=== PATIENT | male | born 1965 | race Two or more races ===

== ENCOUNTER 2021-12-04 13:46 | Inpatient (IN) | payer OTHER ==
[~2021-12-04] VITALS: Ht 160 cm; Wt 73.0 kg
[2021-12-04] MEDS ORDERED: ONDANSETRON HCL 4 MG/2 ML VIAL IV ONE (14:00)
[2021-12-04 14:35] LABS: Basophils # (auto) 0 10 ^3/uL (0-0.2); Basophils % (auto) 0.3 % (0.0-2.0); Eosinophils # (auto) 0.1 10 ^3/uL (0-0.8); Hematocrit 33.8 % (41.0-53.0); Lymphocytes # (auto) 1.5 10 ^3/uL (0.4-5.4); Lymphocytes % (auto) 29.8 % (10.0-50.0); Mean Corpuscular Hemoglobin 31.2 pg (28.0-32.0); Mean Corpuscular Hgb Conc. 32.5 g/dL (32.0-36.0); Mean Corpuscular Volume 96.2 fL (80.0-100.0); Monocytes # (auto) 0.4 10 ^3/uL (0-1.3); Monocytes % (auto) 7.8 % (0.0-12.0); Neutrophils # (auto) 3.1 10 ^3/uL (1.6-8.6); Neutrophils % (auto) 61.1 % (37.0-80.0); Red Blood Cells 3.52 10^6/uL (4.5-5.90); Red Cell Distribution Width 14.5 % (11.8-14.3); White Blood Cell 5.1 10^3/uL (4.4-10.8)
[2021-12-04 14:56] LABS: Alanine Aminotransferase 40 U/L (16-61); Albumin 2.9 g/dL (3.4-5.0); Anion Gap 9 (5-15); Aspartate Aminotransferase 25 U/L (15-37); BUN/Creatinine Ratio 40.3; Blood Alcohol < 3.0 mg/dL (0-5); Blood Urea Nitrogen 27 mg/dL (7-18); Calcium 7.9 mg/dL (8.5-10.1); Carbon Dioxide 22 mmol/L (21-32); Chloride 103 mmol/L (98-107); GFR African American 158 mL/min; GFR Non-African American 130 mL/min; Glucose 383 mg/dL (74-106); Potassium 4.2 mmol/L (3.5-5.1); Sodium 134 mmol/L (136-145)
[2021-12-04 14:59] LABS: Alkaline Phosphatase 109 U/L (45-117); Bilirubin, Total 0.8 mg/dL (0.2-1.0); Total Protein 6.7 g/dL (6.4-8.2)
[2021-12-04 15:00] LABS: INR 1.12 (0.9-1.15); Partial Thromboplastin Time 27.6 sec (24.6-33.4)
[2021-12-04] MEDS ORDERED: PANTOPRAZOLE 40 MG/10 ML VIAL INJ IV ONE (15:30)
[2021-12-04 18:21] LABS: Amylase 90 U/L (25-115); Lipase 342 U/L (73-393)
[2021-12-04] MEDS ORDERED: LACTULOSE 20Gm/30ML SOLN PO ONE (19:30)
[2021-12-04] MEDS ORDERED: ONDANSETRON HCL 4 MG/2 ML VIAL IV PRN (19:30)
[2021-12-04] MEDS ORDERED: cefTRIAXone 1GM/50ML D5W 50 ML IV ONE (19:45)
[2021-12-04 19:56] LABS: Cholesterol 113 mg/dL (< 200)
[2021-12-04 19:59] LABS: HDL Cholesterol 39 mg/dL (40-59); LDL Cholesterol 65 mg/dL (< 100); Triglycerides 114 mg/dL (< 150)
[2021-12-04] MEDS ORDERED: DEXTROSE (50%) 50ML SYRG IV PRN (20:00)
[2021-12-04] MEDS: PANTOPRAZOLE 40 MG/10 ML VIAL INJ IV SCH (20:04)
[2021-12-04] MEDS: SODIUM CHLORIDE 0.9% 1,000 ML IV SCH (20:48)
[2021-12-04] MEDS: metroNIDAZOLE 500MG/100ML 100 ML IV SCH (21:08)
[2021-12-05] VITALS (7 sets, daily range): BP systolic 104–145; BP diastolic 52–70
[2021-12-05] MEDS: InsuLIN REG 1unit/0.01ml Soln (100units/ml) SC SCH ×4 (00:38→17:53)
[2021-12-05] MEDS: ACCU-CHEK COMFORT CURVE STRIP VI SCH ×4 (00:38→17:54)
[2021-12-05] MEDS ORDERED: GLIP10TA9 PO (03:27)
[2021-12-05] MEDS: metroNIDAZOLE 500MG/100ML 100 ML IV SCH ×3 (04:59→20:33)
[2021-12-05 08:53] LABS: Basophils # (auto) 0 10 ^3/uL (0-0.2); Basophils % (auto) 0.4 % (0.0-2.0); Eosinophils # (auto) 0.1 10 ^3/uL (0-0.8); Eosinophils % (auto) 2.6 % (0.0-7.0); Hematocrit 30.3 % (41.0-53.0); Hemoglobin 10.3 g/dL (13.5-17.5); Lymphocytes # (auto) 1.2 10 ^3/uL (0.4-5.4); Mean Corpuscular Hemoglobin 32.1 pg (28.0-32.0); Mean Corpuscular Hgb Conc. 33.8 g/dL (32.0-36.0); Monocytes # (auto) 0.3 10 ^3/uL (0-1.3); Monocytes % (auto) 8.5 % (0.0-12.0); Neutrophils # (auto) 1.9 10 ^3/uL (1.6-8.6); Neutrophils % (auto) 54.5 % (37.0-80.0); Nucleated Red Blood Cells % 0.2 %; Red Blood Cells 3.19 10^6/uL (4.5-5.90); Red Cell Distribution Width 14.6 % (11.8-14.3); White Blood Cell 3.5 10^3/uL (4.4-10.8)
[2021-12-05 09:20] LABS: Albumin 2.4 g/dL (3.4-5.0); BUN/Creatinine Ratio 37.7; Bilirubin, Total 0.5 mg/dL (0.2-1.0); Calcium 7.5 mg/dL (8.5-10.1); Total Protein 5.8 g/dL (6.4-8.2)
[2021-12-05] MEDS: PANTOPRAZOLE 40 MG/10 ML VIAL INJ IV SCH ×2 (09:21→21:28)
[2021-12-05] MEDS: SODIUM CHLORIDE 0.9% 1,000 ML IV SCH ×2 (09:24→21:28)
[2021-12-05] MEDS: SUCRALFATE 1 GM TAB PO SCH ×2 (17:52→21:27)
[2021-12-05] MEDS: cefTRIAXone 1GM/50ML D5W 50 ML IV SCH (21:28)
[2021-12-06] MEDS: ACCU-CHEK COMFORT CURVE STRIP VI SCH ×5 (00:48→21:21)
[2021-12-06] MEDS: metroNIDAZOLE 500MG/100ML 100 ML IV SCH ×3 (04:37→20:34)
[2021-12-06 05:00] VITALS: BP 109/62
[2021-12-06 05:22] LABS: Basophils # (auto) 0 10 ^3/uL (0-0.2); Basophils % (auto) 0.6 % (0.0-2.0); Eosinophils # (auto) 0.1 10 ^3/uL (0-0.8); Eosinophils % (auto) 3.5 % (0.0-7.0); Hematocrit 28.5 % (41.0-53.0); Hemoglobin 9.7 g/dL (13.5-17.5); Lymphocytes # (auto) 1.3 10 ^3/uL (0.4-5.4); Lymphocytes % (auto) 43.9 % (10.0-50.0); Mean Corpuscular Hemoglobin 32.3 pg (28.0-32.0); Mean Corpuscular Hgb Conc. 34.1 g/dL (32.0-36.0); Mean Corpuscular Volume 94.8 fL (80.0-100.0); Monocytes # (auto) 0.3 10 ^3/uL (0-1.3); Monocytes % (auto) 9.3 % (0.0-12.0); Neutrophils # (auto) 1.2 10 ^3/uL (1.6-8.6); Neutrophils % (auto) 42.7 % (37.0-80.0); Nucleated Red Blood Cells % 0.4 %; Red Cell Distribution Width 14.6 % (11.8-14.3); White Blood Cell 2.9 10^3/uL (4.4-10.8)
[2021-12-06 05:47] LABS: Potassium 3.3 mmol/L (3.5-5.1)
[2021-12-06] MEDS: InsuLIN REG 1unit/0.01ml Soln (100units/ml) SC SCH ×5 (05:49→21:22)
[2021-12-06] MEDS: SUCRALFATE 1 GM TAB PO SCH ×4 (05:50→21:21)
[2021-12-06 05:53] LABS: BUN/Creatinine Ratio 35.6; Calcium 7.4 mg/dL (8.5-10.1)
[2021-12-06 08:00] VITALS: BP 117/72
[2021-12-06] MEDS: PANTOPRAZOLE 40 MG/10 ML VIAL INJ IV SCH ×2 (11:33→21:21)
[2021-12-06] MEDS: SODIUM CHLORIDE 0.9% 1,000 ML IV SCH (11:33)
[2021-12-06] MEDS ORDERED: MIDAZOLAM HCL 5 MG/ML-1ML VIAL ONE (12:31)
[2021-12-06] MEDS ORDERED: SODIUM CHLORIDE LOCK 10 ML ONE (12:32)
[2021-12-06] MEDS ORDERED: fentaNYL CITRATE 100 MCG/2 ML VL ONE (12:32)
[2021-12-06 12:37] VITALS: BP 123/66
[2021-12-06] MEDS ORDERED: LIDOCAINE VISCOUS 2% 15ML UD ONE (12:39)
[2021-12-06] MEDS: diphenhdrAMINE HCL 50 MG/1 ML VL ONE ×2 (16:43→16:45)
[2021-12-06 17:01] VITALS: BP 128/68
[2021-12-06 22:00] VITALS: BP 137/76
[2021-12-06] MEDS: cefTRIAXone 1GM/50ML D5W 50 ML IV SCH (22:28)
[2021-12-07] MEDS: SODIUM CHLORIDE 0.9% 1,000 ML IV SCH ×2 (01:05→14:25)
[2021-12-07] MEDS: metroNIDAZOLE 500MG/100ML 100 ML IV SCH ×2 (04:30→12:30)
[2021-12-07 05:00] VITALS: BP 133/76
[2021-12-07 05:09] LABS: Basophils # (auto) 0 10 ^3/uL (0-0.2); Basophils % (auto) 0.7 % (0.0-2.0); Eosinophils # (auto) 0.1 10 ^3/uL (0-0.8); Hematocrit 29.6 % (41.0-53.0); Hemoglobin 10.1 g/dL (13.5-17.5); Lymphocytes # (auto) 1.1 10 ^3/uL (0.4-5.4); Lymphocytes % (auto) 42.8 % (10.0-50.0); Mean Corpuscular Hemoglobin 32.4 pg (28.0-32.0); Mean Corpuscular Hgb Conc. 34.3 g/dL (32.0-36.0); Mean Corpuscular Volume 94.7 fL (80.0-100.0); Monocytes # (auto) 0.3 10 ^3/uL (0-1.3); Monocytes % (auto) 10.3 % (0.0-12.0); Neutrophils # (auto) 1.2 10 ^3/uL (1.6-8.6); Neutrophils % (auto) 43.2 % (37.0-80.0); Nucleated Red Blood Cells % 0.2 %; Red Blood Cells 3.13 10^6/uL (4.5-5.90); Red Cell Distribution Width 14.8 % (11.8-14.3); White Blood Cell 2.7 10^3/uL (4.4-10.8)
[2021-12-07] MEDS: InsuLIN REG 1unit/0.01ml Soln (100units/ml) SC SCH ×2 (05:23→12:00)
[2021-12-07] MEDS: ACCU-CHEK COMFORT CURVE STRIP VI SCH ×2 (05:23→12:00)
[2021-12-07] MEDS: SUCRALFATE 1 GM TAB PO SCH ×2 (05:23→15:15)
[2021-12-07 08:00] VITALS: BP 117/72
[2021-12-07 09:11] VITALS: BP 134/73
[2021-12-07] MEDS: PANTOPRAZOLE 40 MG/10 ML VIAL INJ IV SCH (10:00)
[2021-12-07] MEDS ORDERED: PROP60CA34 PO (10:50)
[2021-12-07] MEDS ORDERED: SUCR1TAB PO (10:50)
[2021-12-07] MEDS ORDERED: FERR-7 PO (10:50)
[2021-12-07] MEDS ORDERED: PANT40T PO (10:50)
[2021-12-07] MEDS ORDERED: PANTOPRAZOLE 40 MG TAB PO ONE (11:00)
[2021-12-07 13:01] VITALS: BP 82/139
[2021-12-07 14:15] LABS: Hepatitis A Ab IgM Negative
[2021-12-07 14:18] LABS: Hepatitis B Core IgM Negative
[2021-12-07 14:19] LABS: Hepatitis C Antibody Negative (Negative)
[2021-12-07 14:29] VITALS: BP 134/73
== END 2021-12-07 15:17 | disposition home or self-care (01) | DRG 280 ==
LOC: ER 13:46 → OVERFLOW 19:22 → WEST WING 12-05 01:35
PROVIDERS: ADMIT Registered Nurse; ATTEND Family Medicine
PROC: 0DB68ZX Excision of Stomach, Via Natural or Artificial Opening Endoscopic, Diagnostic (ICD-10-PCS; 2021-12-06)
PROC: 0DB98ZX Excision of Duodenum, Via Natural or Artificial Opening Endoscopic, Diagnostic (ICD-10-PCS; principal; 2021-12-06 16:39)
DX: K70.30 Alcoholic cirrhosis of liver without ascites (principal); I85.11 Secondary esophageal varices with bleeding; K26.4 Chronic or unspecified duodenal ulcer with hemorrhage; E44.0 Moderate protein-calorie malnutrition; K29.71 Gastritis, unspecified, with bleeding; K85.90 Acute pancreatitis without necrosis or infection, unspecified; K76.6 Portal hypertension; K29.81 Duodenitis with bleeding; E88.09 Other disorders of plasma-protein metabolism, not elsewhere classified; D62 Acute posthemorrhagic anemia; E11.65 Type 2 diabetes mellitus with hyperglycemia; K44.9 Diaphragmatic hernia without obstruction or gangrene; F10.10 Alcohol abuse, uncomplicated; K31.9 Disease of stomach and duodenum, unspecified; Z20.822 Contact with and (suspected) exposure to COVID-19; Z68.28 Body mass index [BMI] 28.0-28.9, adult; Z71.41 Alcohol abuse counseling and surveillance of alcoholic
CPT/HCPCS: 36415; 43239; 74176; 76705; 80048; 80053; 80061; 80074; 80320; 82140; 82150; 82962; 83036; 83690; 85025; 85610; 85730; 86850; 86900; 86901; 93005; 96365; 96375; C9113; G0378; J0696; J1815; J2250; J2405; J3490

== ENCOUNTER 2022-03-06 07:25 | Emergency (ER) | payer OTHER ==
[~2022-03-06] VITALS: Ht 167.6 cm; Wt 63.8 kg
[~2022-03-06 07:25] MED LIST: FERR-7 PO; GLIP10TA9 PO; PANT40T PO; PROP60CA34 PO; SUCR1TAB PO
[2022-03-06 07:50] VITALS: BP 137/73
[2022-03-06] MEDS ORDERED: ASPirin 81 mg TAB PO ONE (08:00)
[2022-03-06 08:13] LABS: Basophils # (auto) 0 10 ^3/uL (0-0.2); Eosinophils # (auto) 0.1 10 ^3/uL (0-0.8); Hemoglobin 8.1 g/dL (13.5-17.5); Lymphocytes # (auto) 1.2 10 ^3/uL (0.4-5.4); Monocytes # (auto) 0.3 10 ^3/uL (0-1.3); Neutrophils % (auto) 60.4 % (37.0-80.0); White Blood Cell 3.9 10^3/uL (4.4-10.8)
[2022-03-06 08:15] LABS: Basophils % (auto) 0.8 % (0.0-2.0); Eosinophils % (auto) 1.6 % (0.0-7.0); Hematocrit 24.1 % (41.0-53.0); Lymphocytes % (auto) 30.8 % (10.0-50.0); Mean Corpuscular Hemoglobin 28.4 pg (28.0-32.0); Mean Corpuscular Hgb Conc. 33.4 g/dL (32.0-36.0); Mean Corpuscular Volume 84.9 fL (80.0-100.0); Monocytes % (auto) 6.4 % (0.0-12.0); Neutrophils # (auto) 2.4 10 ^3/uL (1.6-8.6); Nucleated Red Blood Cells % 0.1 %; Red Blood Cells 2.84 10^6/uL (4.5-5.90); Red Cell Distribution Width 16.7 % (11.8-14.3)
[2022-03-06 08:19] LABS: Urine Bacteria NONE SEEN /hpf (None Seen); Urine Blood Negative /uL (Negative); Urine Specific Gravity 1.033 (1.001-1.035); Urine WBC 1 /hpf (0 - 3)
[2022-03-06 08:28] LABS: Alcohol, Urine < 3.0 mg/dL (0-10); Amphetamine Screen, Urine POSITIVE (NEGATIVE); Barbiturate Scree,Urine NEGATIVE (NEGATIVE); Benzodiazephine Screen, Urine NEGATIVE (NEGATIVE); Cannabinoid Screen, Urine NEGATIVE (NEGATIVE); Cocaine Screen, Urine NEGATIVE (NEGATIVE); Opiate Scree,Urine NEGATIVE (NEGATIVE); Phencyclidine Screen, Urine NEGATIVE (NEGATIVE)
[2022-03-06 09:15] LABS: Albumin 2.9 g/dL (3.4-5.0); Calcium 7.5 mg/dL (8.5-10.1); Magnesium 1.7 mg/dL (1.6-2.6); Potassium 3.8 mmol/L (3.5-5.1)
[2022-03-06 09:20] LABS: BUN/Creatinine Ratio 21.2; Bilirubin, Total 0.5 mg/dL (0.2-1.0); Total Protein 6.4 g/dL (6.4-8.2)
[2022-03-06] MEDS ORDERED: MORPHINE SULFATE 4 MG/ML SYR/VIAL IV ONE (10:45)
[2022-03-06] MEDS ORDERED: ONDANSETRON HCL 4 MG/2 ML VIAL IV ONE (10:45)
== END 2022-03-06 12:26 | disposition left against medical advice (07) ==
LOC: ER 07:25
DX: R07.89 Other chest pain (principal); E11.65 Type 2 diabetes mellitus with hyperglycemia; K74.60 Unspecified cirrhosis of liver; F15.10 Other stimulant abuse, uncomplicated; Z20.822 Contact with and (suspected) exposure to COVID-19
CPT/HCPCS: 36415; 71046; 74176; 80053; 80307; 81001; 82140; 83735; 83880; 84484; 85025; 87426; 93005

== ENCOUNTER 2024-07-16 13:19 | Emergency (ER) | payer OTHER ==
[~2024-07-16] VITALS: Ht 149.9 cm; Wt 136.0 kg
--- NOTE | 2024-07-16 13:49 | ED.PDOC ---
GI ASSESSMENT HPI Comments 58y M who presents to the ED for chief complaint of abdominal pain. Pt states he has been having abdominal pain for the past 1 days. Pt states the pain is diffusely located, constant, pressure like in nature, with no associated exacerbating or relieving factors. Pt denies any associated symptoms. Pt states he was hospitalized for GI bleed recently and received blood transufusion. Pt denies any associated bleeding, or associated nausea, vomiting or diarrhea. Pt denies any other symptoms at this time. Time Seen by MD: 13:44 Primary Care Provider: NONE Reviewed Notes: Nurses Notes, Medications, Allergies Allergies: Coded Allergies: NO KNOWN ALLERGIES (Unverified , 12/04/21) Home Meds Active Scripts Ferrous Sulfate (Iron) 325 Mg Tab, 325 MG PO BID, #180 TAB Prov:BRYAN CORTES MD 12/07/21 Propranolol Hcl (Inderal La) 60 Mg Cap, 1 CAP PO DAILY, #30 CAP 3 Refills Prov:BRYAN CORTES MD 12/07/21 Pantoprazole Sodium Sesquihydr (Pantoprazole Sodium) 40 Mg Tab, 40 MG PO BID, #60 TAB Prov:BRYAN CORTES MD 12/07/21 Sucralfate (Sucralfate) 1 Gm Tab, 1 GM PO BID, #60 TAB Prov:BRYAN CORTES MD 12/07/21 Reported Medications Glipizide (Glipizide) 10 Mg Tab, 1 TAB PO BID for DM 12/05/21 Information Source: Patient Mode of Arrival: Ambulatory Brought in by: self Timing: Hours Duration: Since onset Prehospital treatment: None Quality: Aching Vomitus: None Stool: Normal Severity: Moderate Recent: None Recent Hx of: GI Bleed Pain Location: Diffuse Modifying Factors: Nothing Associated sign and symptoms: Abdominal Pain Past Medical History PAST MEDICAL HISTORY: DM, Liver Surgical History: Hernia Repair Family History Family History: Reviewed,noncontributory to illness Social History Smoker: Non-Smoker Alcohol: Heavy Drugs: Methamphetamine Lives In: Home Constitutional: denies: chills, diaphoresis, fatigue, fever, malaise, sweats, weakness, others EENTM: denies: blurred vision, double vision, ear bleeding, ear discharge, ear drainage, ear pain, ear ringing, eye pain, eye redness, hearing loss, mouth pain, mouth swelling, nasal discharge, nose bleeding, nose congestion, nose pain, photophobia, tearing, throat pain, throat swelling, voice changes, others Respiratory: denies: cough, hemoptysis, orthopnea, SOB at rest, shortness of breath, SOB with excertion, stridor, wheezing, others Cardiovascular: denies: chest pain, dizzy spells, diaphoresis, Dyspnea on exertion, edema, irregular heart beat, left arm pain, lightheadedness, palpitations, PND, syncope, others Gastrointestinal: reports: abdominal pain; denies: abdomen distended, blood streaked bowels, constipated, diarrhea, dysphagia, difficulty swallowing, hematemesis, melena, nausea, poor appetite, poor fluid intake, rectal bleeding, rectal pain, vomiting, others Genitourinary: denies: burning, dysuria, flank pain, frequency, hematuria, incontinence, penile discharge, penile sore, pain, testicle pain, testicle swelling, urgency, others Neurological: denies: dizziness, fainting, headache, left sided numbness, left sided weakness, numbness, paresthesia, pre-existing deficit, right sided numbness, right sided weakness, seizure, speech problems, tingling, tremors, weakness, others Musculoskeletal: denies: back pain, gout, joint pain, joint swelling, muscle pain, muscle stiffness, neck pain, others Integumetry: denies: bruises, change in color, change in hair/nails, dryness, laceration, lesions, lumps, rash, wounds, others Allergic/Immunocompromised: denies: Difficulty Healing, Frequent Infections, Hives, Itching, others Hematologic/Lymphatic: denies: anemia, blood clots, easy bleeding, easy brui sing, swollen glands, others Endocrine: denies: excessive hunger, excessive sweating, excessive thirst, ex cessive urination, flushing, intolerance to cold, intolerance to heat, unexplained weight gain, unexplained weight loss, others Psychiatric: denies: anxiety, bipolar disorder, depression, hopeless, panic disorder, schizophrenia, sleepless, suicidal, others All Other Systems: Reviewed and Negative Physical Exam General Appearance: Moderate Distress, Obese HEENT: Pale [place]ae (L), Pale Conj[place]ivae (R), Pharynx Normal, TMs Normal Neck: Full Range of Motion, Non-Tender, Normal, Normal Inspection Respiratory: Chest Non-Tender, Lungs Clear, No Accessory Muscle Use, No Respiratory Distress, Normal Breath Sounds Cardiovascular: No Edema, No JVD, No Murmur, No Gallop, Normal Peripheral Pulses, Regular Rate/Rhythm Breast Exam: Deferred Gastrointestinal: Hepatomegaly, Soft, Tenderness Genitalia: Deferred Pelvic: Deferred Rectal: Deferred Extremities: No calf tenderness, Normal capillary refill, No pedal edema Musculoskeletal : Apperance: Normal Neurologic: Alert, communications manager II-XII nml as Tested, Motor Weakness, Normal Affect, Normal Mood, No Sensory Deficits Cerebellar Function: Normal Reflexes: Normal Skin: Dry, Pallor, Warm Lymphatic: No Adenopathy EKG EKG : Pulse Rate (adult): 80 [place]: Normal Cardiac Rhythm: NSR Block: None Hypertrophy: None ST: Normal Was a procedure done? Was a procedure done?: No GI differential Dx Differential Diagnosis: Diverticular disease, Gastritis/PUD, Gastroenteritis, GI hemorrhage, Pancreatitis, Dehydration, Electrolyte Imbalance, Stress Ulcer Other Differential Diagnosis iron def anemia, X-Ray, Labs, Meds, VS Vital Signs Date Time Temp Pulse Resp B/P (MAP) Pulse Ox O2 Delivery O2 Flow Rate FiO2 07/16/24 14:01 98.4 85 18 144/77 (99) 100 07/16/24 13:48 80 Lab Test 07/16/24 13:58 07/16/24 13:41 Range/Units White Blood Count 2.1 L 4.4-10.8 10^3/uL Red Blood Count 3.23 L 4.5-5.90 10^6/uL Hemoglobin 8.2 L 13.5-17.5 g/dL Hematocrit 26.3 L 41.0-53.0 % Mean Corpuscular Volume 81.5 80.0-100.0 fL Mean Corpuscular Hemoglobin 25.3 L 28.0-32.0 pg Mean Corpuscular Hemoglobin Concent 31.1 L 32.0-36.0 g/dL Red Cell Distribution Width 32.9 H 11.8-14.3 % Platelet Count 98 L 140-450 10^3/uL Mean Platelet Volume 8.3 6.9-10.8 fL Neutrophils (%) (Auto) 37.0-80.0 % Lymphocytes (%) (Auto) 10.0-50.0 % Monocytes (%) (Auto) 0.0-12.0 % Basophils (%) (Auto) 0.0-2.0 % Neutrophils # (Auto) 1.6-8.6 10 ^3/uL Lymphocytes # (Auto) 0.4-5.4 10 ^3/uL Monocytes # (Auto) 0-1.3 10 ^3/uL Differential Total Cells Counted 100.0 100 Neutrophils % (Manual) 46 37.0-80.0 Band Neutrophils % (Manual) 1 Lymphocytes % (Manual) 50 10.0-50.0 Monocytes % (Manual) 0 0-12 Eosinophils % (Manual) 3 0-7 Basophils % (Manual) 0 0.0-2.0 Metamyelocytes % (manual) 0 Myelocytes % (Manual) 0 Promyelocytes % (Manual) 0 Blast Cells % (Manual) 0 Reactive Lymphocytes 0 Platelet Estimate Decreased Anisocytosis (manual) Marked Prothrombin Time 12.0 H 9.3-11.8 sec Prothrombin Time INR 1.15 0.9-1.15 Activated Partial Thromboplast Time 34.0 24.5-34.5 SEC Sodium Level 132 L 136-145 mmol/L Potassium Level 4.1 3.5-5.1 mmol/L Chloride Level 102 98-107 mmol/L Carbon Dioxide Level 23 20-31 mmol/L Anion Gap 7 5-15 Blood Urea Nitrogen 11 9-23 mg/dL Creatinine 0.62 L 0.700-1.30 mg/dL Glomerular Filtration Rate Calc 111 >90 mL/min BUN/Creatinine Ratio 17.7 10.0-20.0 Serum Glucose 294 H 74-106 mg/dL Calcium Level 7.9 L 8.7-10.4 mg/dL Total Bilirubin 1.1 H 0.2-1.0 mg/dL Aspartate Amino Transferase (AST) 31 13-40 U/L Alanine Aminotransferase (ALT) 28 7-40 U/L Alkaline Phosphatase 127 H 46-116 U/L Ammonia < 10 L 11-32 umol/L Total Protein 7.0 5.7-8.2 g/dL Albumin 3.2 3.2-4.8 g/dL Lipase 39 12-53 U/L POC Glucose 254 H 70-106 mg/dl TECHNIQUE: Axial CT images of the abdomen and pelvis were obtained without IV contrast. Coronal and sagittal reformatted images were obtained, reviewed, and stored. Evaluation of the parenchymal organs is limited without IV contrast. Evaluation of the bowel and mesentery is limited without oral contrast. All CT scans at this medical facility are performed using dose modulation techniques as appropriate to a performed exam including the following: Automated exposure control was utilized; adjustment of the MA and/or KV according to patient size; and use of iterative reconstruction technique. IMPRESSION: 1. Cirrhotic liver morphology. 2. Moderate mesenteric edema and small to moderate volume ascites. 3. Gallbladder wall appears thickened, may be due to 3rd spacing of fluid no calcified gallstones visualized. Correlate with clinical findings. If clinically indicated, ultrasound could be obtained. 4. Nonspecific nondilated fluid-filled small bowel loops. Findings may be seen with ileus or enteritis in the appropriate clinical setting. No small bowel obstruction. 5. Additional findings as detailed above. IV Hep-Lock was established. The patient's CBC shows a hemoglobin of 8.2 and hematocrit of 26.3 The chemistry panel is within normal limits The patient's lipase is within normal limits The patient was being admitted at this time. Images Reviewed?: Images reviewed and evaluated by me Time of 1ST Reevaluation: 14:15 Reevaluation 1ST: Unchanged Patient Education/Counseling: Diagnosis, Treatment, Prognosis Family Education/Counseling: No Family Present Additional Information -Reviewed patient's previous visit(s): - The following tests were ordered, and results were reviewed by me: cbc, cmp, ua , lipase, ct abdomen and pelvis w/o contrast, ptptt, type and screen, ammonia - Additional information was gathered from interviewing the following independent Historian: self - I reviewed and agreed with the following test results read by other provider: radiologist - I discussed treatments and results with medical personnel and: patient Comprehensive systems review obtained and negative except for what is stated in the HPI. Departure 1 Departure Time of Disposition: 17:46 Impression: Primary Impression: Intractable abdominal pain Additional Impressions: Cirrhosis of liver Qualified Codes: K70.31 - Alcoholic cirrhosis of liver with ascites Ascites Qualified Codes: R18.8 - Other ascites Disposition: ADMITTED INPATIENT Admit to: Med Surg Condition: Fair Critical Care Note Critical Care Time?: No Stability Stability form required: Yes Unstable for transfer: ED Physician Assesment (Clinical assesment) Heart Score Heart Score: Heart Score Response (Comments) Value History N/A 0 EKG N/A 0 Age N/A 0 Risk Factors N/A 0 Troponin N/A 0 Total 0 I personally scribed for GARCÍA VICTOR MD ([email or web address]) on 07/16/24 at 13:48. Electronically submitted by Angelic Álvarez ([email or web address]). I personally scribed for GARCÍA VICTOR MD ([email or web address]) on 07/16/24 at 14:50. Electronically submitted by Angelic Álvarez ([email or web address]). GARCÍA VICTOR MD Jul 16, 2024 13:48
[2024-07-16 14:01] VITALS: BP 144/77; PULSE 85; RESP 18; O2SAT 100
[2024-07-16 14:12] LABS: Mean Corpuscular Hemoglobin 25.3 pg (28.0-32.0); Red Cell Distribution Width 32.9 % (11.8-14.3)
[2024-07-16 14:14] LABS: Hematocrit 26.3 % (41.0-53.0); Hemoglobin 8.2 g/dL (13.5-17.5); Mean Corpuscular Hgb Conc. 31.1 g/dL (32.0-36.0); Mean Corpuscular Volume 81.5 fL (80.0-100.0); Platelet Count (auto) 98 10^3/uL (140-450); Red Blood Cells 3.23 10^6/uL (4.5-5.90); White Blood Cell 2.1 10^3/uL (4.4-10.8)
[2024-07-16 14:15] LABS: Basophils % (manual) 0 (0.0-2.0); Blast Cells 0; Metamyelocytes % 0; Monocytes % (manual) 0 (0-12); Myelocytes % 0; Promyelocytes % 0; Reactive Lymphocytes 0
[2024-07-16 14:22] LABS: INR 1.15 (0.9-1.15)
[2024-07-16 14:30] LABS: Alanine Aminotransferase 28 U/L (7-40); Anion Gap 7 (5-15); Aspartate Aminotransferase 31 U/L (13-40); BUN/Creatinine Ratio 17.7 (10.0-20.0); Blood Urea Nitrogen 11 mg/dL (9-23); Carbon Dioxide 23 mmol/L (20-31); Chloride 102 mmol/L (98-107); Lipase 39 U/L (12-53); Potassium 4.1 mmol/L (3.5-5.1)
[2024-07-16 14:31] LABS: Bilirubin, Total 1.1 mg/dL (0.2-1.0)
--- NOTE | 2024-07-16 14:31 | DVH ---
CLINICAL INFORMATION: 58 years old, Male; weakness. TECHNIQUE: Axial CT images of the abdomen and pelvis were obtained without IV contrast. Coronal and s agittal reformatted images were obtained, reviewed, and stored. Evaluation of the parenchymal organs is limited without IV contrast. Evaluation of the bowel and mesentery is limited without oral contras t. All CT scans at this medical facility are performed using dose modulation techniques as appropriat e to a performed exam including the following: Automated exposure control was utilized; adjustment of the MA and/or KV according to patient size; and use of iterative reconstruction technique. CTDIvol = 6.84 mGy DLP = 419.71 mGy-cm COMPARISON: CT ABD PELVIS WO CONTRAST on DOS: 03/06/22, CT ABD PELVIS WO CONTRAST on DOS: 12/04/21 FINDINGS: Lung bases: Mild atelectasis in the lung bases. Liver: Cirrhotic liver morphology with nodular contour relative enlargement of the left hepatic lobe. Biliary: Gallbladder wall appears thickened. No calcified gallstones visualized. Spleen: Spleen is enlarged, measuring up to 15.8 cm in greatest dimension. There are varicosities josue r the splenic hilum. Pancreas: Edema and fluid near the pancreas is similar to the edema and fluid throughout the rest of the abdomen, likely due to ascites rather than inflammatory in nature. Adrenal glands: Unremarkable. No mass. Kidneys: No hydronephrosis. No renal or ureteral calculi. Aorta/Vascular: Scattered atherosclerotic calcification. No abdominal aortic aneurysm. Retroperitoneum: No mass or lymphadenopathy. Bowel/mesentery: Diffuse moderate mesenteric edema and small to moderate volume ascites in the abdome n and pelvis. Appendix is normal in caliber. No small bowel obstruction. Nonspecific nondilated fluid -filled small bowel loops. Pelvic organs: Grossly unremarkable. Bladder: Unremarkable. No mass. Abdominal wall: No mass or hernia. Bones: No acute fracture or suspicious intraosseous lesion. IMPRESSION: 1. Cirrhotic liver morphology. 2. Moderate mesenteric edema and small to moderate volume ascites. 3. Gallbladder wall appears thickened, may be due to 3rd spacing of fluid no calcified gallstones vis ualized. Correlate with clinical findings. If clinically indicated, ultrasound could be obtained. 4. Nonspecific nondilated fluid-filled small bowel loops. Findings may be seen with ileus or enteriti s in the appropriate clinical setting. No small bowel obstruction. 5. Additional findings as detailed above.
[2024-07-16 14:42] LABS: Albumin 3.2 g/dL (3.2-4.8); Alkaline Phosphatase 127 U/L (46-116); Calcium 7.9 mg/dL (8.7-10.4); Glucose 294 mg/dL (74-106); Sodium 132 mmol/L (136-145)
[2024-07-16 14:50] LABS: Anisocytosis Marked; Band Neutrophils % (manual) 1; Eosinophils % (manual) 3 (0-7); Lymphocytes % (manual) 50 (10.0-50.0); Platelet Estimate Decreased
--- NOTE | 2024-07-17 09:15 | ECG ---
[facility] Test Date: 2024-07-16 Test Time: 13:29:47 Pat Name: SHIRLEY PRITCHETT Department: C Room: Gender: M [employer] Supervisor: SANDI : 1965 Requested By: GARCÍA VICTOR Order Number: [id number] Reading MD: Ulises Paredes Measurements Intervals [place] Rate: 80 P: 36 VT: 141 QRS: 21 QRSD: 95 T: 2 QT: 375 QTc: 433 Interpretive Statements Sinus rhythm Electronically Signed On 07-18-2024 18:00:35 PST by Ulises Paredes Please click the below link to view image of tracing.
[2024-07-17] MEDS ORDERED: EZ-GAS II GRANULES (RADIOLOGY USE) PO ONE (10:22)
== END 2024-07-16 20:21 | disposition left against medical advice (07) ==
LOC: ER 13:19
DX: K74.60 Unspecified cirrhosis of liver (principal); R18.8 Other ascites; E11.9 Type 2 diabetes mellitus without complications; Z79.84 Long term (current) use of oral hypoglycemic drugs; Z79.899 Other long term (current) drug therapy; Z98.890 Other specified postprocedural states
CPT/HCPCS: 36415; 74176; 80053; 82140; 82962; 83690; 85007; 85027; 85610; 85730; 86850; 86900; 86901; 93005